=== PATIENT | male | born 1985 | race Two or more races ===

== ENCOUNTER 2020-07-18 00:36 | Emergency (ER) | payer MEDICAID ==
[~2020-07-18] VITALS: Ht 170.2 cm; Wt 85.0 kg
[2020-07-18 01:22] VITALS: BP 112/68
[2020-07-18] MEDS ORDERED: LIDOCAINE HCL/EPINEPHRINE 1%-EPI 1:100,000 10 ML VIAL IJ ONE (01:30)
[2020-07-18] MEDS ORDERED: TETANUS, DIPHTHERIA, PERTUSSIS VAC/PF 0.5ML (>7YR OLD) IM ONE (01:30)
[2020-07-18] MEDS ORDERED: ACETAMINOPHEN 325MG TABLET PO ONE (01:30)
[2020-07-18] MEDS ORDERED: BACITRACIN ZINC OINT UDPKT TOP ONE (01:30)
[2020-07-18] MEDS ORDERED: LIDOCAINE HCL/EPINEPHRINE 1%-EPI 1:100,000 20 ML VIAL INFIL NR (01:45)
== END 2020-07-18 04:02 | disposition home or self-care (01) ==
LOC: ER 00:36
DX: S81.012A Laceration without foreign body, left knee, initial encounter (principal); X99.1XXA Assault by knife, initial encounter; Y93.89 Activity, other specified; Y92.018 Other place in single-family (private) house as the place of occurrence of the external cause
CPT/HCPCS: 12001; 73562; 90471; 90715; 99283; J3490; Z7610